=== PATIENT | male | born 1975 | race Hispanic/Latino ===

== ENCOUNTER 2023-04-15 19:41 | Emergency (ER) | payer SELFPAY ==
--- OUTSIDE RECORDS SUMMARY | 2023-04-15 19:44 | XMS REPORT | Continuity of Care Document ---
:1975 Author Organization [facility] t Address [address] [place] [address] [place] [id number] Care Team Providers Name Role Phone Unavailable Unavailable Unavailable Problems This patient has no known problems. Allergies, Adverse Reactions, Alerts This patient has no known allergies or adverse reactions. Medications This patient has no known medications. Procedures This patient has no known procedures. Encounters Start End Encounter Admission Attending Care Care Encounter Source Date/Time Date/Time Type Type Clinicians Facility Department ID 2023-01-14 2023-01-14 Outpatient [facility] [id number] [facility] 10:52:08 10:52:08 [id number] F Arpit 2022-12-30 2022-12-30 Outpatient [facility] SFA [id number] [facility] 09:31:15 09:31:15 [id number] F Arpit 2022-12-27 2022-12-27 Outpatient [facility] [id number] Bryant 14:30:24 14:30:24 [id number] F Arpit Results This patient has no known results.
--- NOTE | 2023-04-15 20:22 | RAD REPORT ---
EXAM DESCRIPTION: RAD - Lumbar Spine 3 Views - 04/15/2023 8:14 pm CLINICAL HISTORY: LOWER BACK PAIN Radiculopathy COMPARISON: <Comparisons> FINDINGS: Vertebral body heights appear maintained. No compression fracture noted. Mild lower lumbar spine disc thinning with small endplate osteophytes. No spondylolysis or spondylolisthesis. IMPRESSION: Mild lower lumbar spondylosis noted. Follow-up nonemergent MRI would be suggested if symptomology persists.
[2023-04-15] MEDS ORDERED: KETOROLAC 30 MG/ML INJ ONE (20:56)
[2023-04-15] MEDS ORDERED: dexAMETHasone 10 MG/ML VIAL ONE (20:56)
--- NOTE | 2023-04-15 20:56 | ER ---
Nurse's Notes [facility] Name: Nikita Carlson Age: 48 yrs Sex: Male : 1975 Arrival Date: 04/15/2023 Time: 19:41 Bed 11 Private MD: Diagnosis: Strain of muscle, fascia and tendon of lower back;Other spondylosis, lumbar region Presentation: 04/15 19:56 Chief complaint: Patient states: LUMBAR PAIN AFTER LIFTING HEAVY OBJECT THIS AM. bp Coronavirus screen: At this time, the client does not indicate any symptoms associated with coronavirus-19. Ebola Screen: No symptoms or risks identified at this time. Initial Sepsis Screen: Does the patient meet any 2 criteria? No. Patient's initial sepsis screen is negative. Does the patient have a suspected source of infection? No. Patient's initial sepsis screen is negative. Risk Assessment: Do you want to hurt yourself or someone else? Patient reports no desire to harm self or others. Onset of symptoms was April 15, 2023. Care prior to arrival: Medication(s) given: NAPROXEN. 19:56 Method Of Arrival: Ambulatory bp 19:56 Acuity: BISMARK 5 bp Triage Assessment: 19:57 General: Appears uncomfortable, Behavior is calm, cooperative, appropriate for age. bp Pain: Complains of pain in back. Musculoskeletal: Circulation, motion, and sensation intact. Range of motion: intact in all extremities. Historical: - Allergies: 19:57 No Known Allergies; bp - Home Meds: 19:57 None [Active]; bp - PMHx: 19:57 None; bp - PSHx: 19:57 None; bp - Immunization history:: Adult Immunizations up to date. - Social history:: Smoking status: Patient denies any tobacco usage or history of. Screenin:02 [facility] ED Fall Risk Assessment (Adult) History of falling in the last 3 months, bp including since admission No falls in past 3 months (0 pts). Abuse screen: Denies threats or abuse. Denies injuries from another. Nutritional screening: No deficits noted. Tuberculosis screening: No symptoms or risk factors identified. Assessment: 20:00 General: SEE TRIAGE NOTE. bp 21:02 Reassessment: [place] [facility] WITH FAMILY. bp Vital Signs: 19:56 BP 129 / 81; Pulse 75; Resp 16; Temp 98; Pulse Ox 98% ; bp ED Course: 19:44 Patient arrived in ED. mr 19:57 Triage completed. bp 19:57 Arm band placed on. bp 19:58 [facility]and [facility] sb4 19:58 Marquis Duran MD is Attending Physician. sb4 20:16 Lumbar Spine (3 Views) XRAY In Process Unspecified. EDMS 20:49 Yair Lowry, RN is Primary Nurse. bp 20:56 Anirudh Luna MD is Referral Physician. sb4 21:02 Patient has correct armband on for positive identification. Adult w/ patient. bp 21:02 No provider procedures requiring assistance completed. Patient did not have IV access bp during this emergency room visit. Administered Medications: 20:49 Drug: Dexamethasone IM 10 mg Route: IM; Site: left gluteus; bp 21:04 Follow up: Response: No adverse reaction bp 20:49 Drug: Ketorolac IM 30 mg Route: IM; Site: left gluteus; bp 21:03 Follow up: Response: No adverse reaction bp Medication: 21:02 VIS not applicable for this client. bp Outcome: 20:56 Discharge ordered by MD. sb4 21:02 Discharged to home ambulatory, with family. bp 21:02 Condition: stable 21:02 Discharge instructions given to patient, Instructed on discharge instructions, follow up and referral plans. medication usage, Demonstrated understanding of instructions, follow-up care, medications, Prescriptions given X 2. 21:04 Patient left the ED. bp Signatures: Dispatcher [employer] EDND Tata Mcghee mr Yair Lowry, RN RN bp Steffi Boland PA-C PA-C sb4
--- NOTE | 2023-04-15 20:56 | EDPHYS ---
Physician Documentation [facility] Name: Nikita Carlson Age: 48 yrs Sex: Male : 1975 Arrival Date: 04/15/2023 Time: 19:41 Bed 11 Private MD: ED Physician Marquis Duran HPI: 04/15 21:25 This 48 yrs old Male presents to ER via Ambulatory with complaints of Back sb4 Pain. 21:25 The patient presents with pain that is acute. The symptoms are located in the low back. sb4 Onset: The symptoms/episode began/occurred this morning. The pain does not radiate. Associated signs and symptoms: The patient has no apparent associated signs or symptoms. The problem was sustained when lifting heavy object. Modifying factors: The patient symptoms are alleviated by rest, the patient symptoms are aggravated by any movement, bending, lifting. The patient has not experienced similar symptoms in the past. The patient has not recently seen a physician. Historical: - Allergies: 19:57 No Known Allergies; bp - Home Meds: 19:57 None [Active]; bp - PMHx: 19:57 None; bp - PSHx: 19:57 None; bp - Immunization history:: Adult Immunizations up to date. - Social history:: Smoking status: Patient denies any tobacco usage or history of. ROS: 21:25 Constitutional: Negative for fever, chills, and weight loss, Eyes: Negative for injury, sb4 pain, redness, and discharge. 21:25 Back: Positive for injury or acute deformity, pain with movement, Negative for radiated pain. 21:25 Neuro: Negative for dizziness, gait disturbance, numbness, tingling. 21:25 All other systems are negative. Exam: 21:25 Constitutional: This is a well developed, well nourished patient who is awake, alert, sb4 and in no acute distress. Head/Face: Normocephalic, atraumatic. Eyes: Extra-ocular motions intact. Periorbital areas with no swelling, redness, or edema. Respiratory: Lungs have equal breath sounds bilaterally, clear to auscultation and percussion. No rales, rhonchi or wheezes noted. No increased work of breathing, no retractions or nasal flaring. Abdomen/GI: Soft, non-tender, no distension. Back: No spinal tenderness. No costovertebral tenderness. Full range of motion. Skin: Warm, dry with normal turgor. Normal color with no rashes, no lesions, and no evidence of cellulitis. MS/ Extremity: Pulses equal, no cyanosis. Neurovascular intact. Full, normal range of motion. 21:25 Neuro: Exam negative for acute changes, focal neuro deficits, motor deficits, sensory deficits, cerebellar deficits. Vital Signs: 19:56 BP 129 / 81; Pulse 75; Resp 16; Temp 98; Pulse Ox 98% ; bp MDM: 19:58 Patient medically screened. sb4 21:25 Differential diagnosis: Fracture Osteoarthritis ruptured disc, spinal injury, sprain, sb4 vertebral fracture. Data reviewed: vital signs, nurses notes, radiologic studies, and as a result, I will discharge patient. Counseling: I had a detailed discussion with the patient and/or guardian regarding: the historical points, exam findings, and any diagnostic results supporting the discharge/admit diagnosis, radiology results, the need for outpatient follow up, a orthopedic surgeon, to return to the emergency department if symptoms worsen or persist or if there are any questions or concerns that arise at home. 04/15 20:02 Order name: Lumbar Spine (3 Views) XRAY; Complete Time: 20:31 sb4 Administered Medications: 20:49 Drug: Dexamethasone IM 10 mg Route: IM; Site: left gluteus; bp 21:04 Follow up: Response: No adverse reaction bp 20:49 Drug: Ketorolac IM 30 mg Route: IM; Site: left gluteus; bp 21:03 Follow up: Response: No adverse reaction bp Disposition: 21:43 Co-signature as Attending Physician, Marquis Duran MD I agree with the assessment sp4 and plan of care. I reviewed the patient's care provided by the Advanced Practice Provider and agree with the diagnosis and treatment plan. Disposition Summary: 04/15/23 20:56 Discharge Ordered Location: Home sb4 Problem: new sb4 Symptoms: have improved sb4 Condition: Stable sb4 Diagnosis - Strain of muscle, fascia and tendon of lower back sb4 - Other spondylosis, lumbar region sb4 Followup: sb4 - With: - When: As needed - Reason: Further diagnostic work-up, Recheck today's complaints, Re-evaluation by your physician Discharge Instructions: - Discharge Summary Sheet sb4 - Low Back Sprain or Strain Rehab sb4 Forms: - Medication Reconciliation Form sb4 - Thank You Letter sb4 - Antibiotic Education sb4 - Prescription Opioid Use sb4 - Patient Portal Instructions sb4 - Work release form pf1 Prescriptions: - Cyclobenzaprine 10 mg Oral Tablet - take 1 tablet by ORAL route every 8 hours As needed; 30 tablet; Refills: 0, sb4 Product Selection Permitted - Medrol (Roger) 4 mg Oral Tablets, Dose Pack - take 1 tablet by ORAL route as directed - follow package instructions; 1 sb4 packet; Refills: 0, Product Selection Permitted Signatures: Dispatcher [employer] Yair Langston RN RN Steffi Winter PA-C PA-C sb4 Marquis Duran MD MD sp4
[2023-04-15 21:21] VITALS: BP 129/81; TEMP 98; O2SAT 98
== END 2023-04-15 21:04 | disposition home or self-care (01) ==
LOC: ER 19:41
DX: S39.012A Strain of muscle, fascia and tendon of lower back, initial encounter (principal); M47.896 Other spondylosis, lumbar region
CPT/HCPCS: 72100; 96372; 99284; J1100